=== PATIENT | female | born 1970 | race Hispanic/Latino ===

== ENCOUNTER 2016-06-28 09:33 | Inpatient (IN) | payer SELFPAY ==
--- NOTE | 2016-06-28 09:42 | Emergency Department Report ---
HPI - General Time Seen by Provider: 06/28/16 09:39 - HPI HPI: This is a 46-year-old female who presents to the emergency department from home via EMS with the complaint of possible stroke. The patient has left- sided weakness and numbness or decreased sensation. The patient was at the dentist office yesterday when she had some type of procedure done or medication given which she started having the same set of symptoms. She went from the dentist office to [facility] where she had an evaluation, was admitted as an observational stay and then discharged 24 hours later after her symptoms had resolved. The patient went to sleep last night back at her baseline. She woke up this morning with the left sided weakness and decreased sensation on the left side compared to the right. She is not taken anything and was not given anything for symptoms prior to presentation. She has a history of hypertension and has not yet taken her blood pressure medications this morning. No recent travel or sick contacts at home. She denies any tobacco or illicit drug use or abuse. ED Past Medical Hx - Medications Home Medications: Home Medications Medication Instructions Recorded Confirmed Last Taken Type Aspirin [Adult Low Dose Aspirin EC] 81 mg PO DAILY 06/28/16 06/28/16 06/27/16 History Clindamycin [Clindamycin CAP] 150 mg PO Q8HR 06/28/16 06/28/16 06/27/16 History Ramipril 5 mg PO DAILY 06/28/16 06/28/16 06/27/16 History Rosuvastatin (Nf) [Crestor] 20 mg PO QHS 06/28/16 06/28/16 06/27/16 History traMADol [Ultram] 50 mg PO Q6HR PRN 06/28/16 06/28/16 Unknown History ED Review of Systems ROS: Stated complaint: POSS CVA Other details as noted in HPI Comment: All other systems reviewed and negative Constitutional: denies: chills, fever Eyes: denies: eye pain, eye discharge, vision change ENT: denies: ear pain, throat pain Respiratory: denies: cough, shortness of breath, wheezing Cardiovascular: denies: chest pain, palpitations Gastrointestinal: denies: abdominal pain, nausea, diarrhea Genitourinary: denies: urgency, dysuria, discharge Musculoskeletal: denies: back pain, joint swelling, arthralgia Skin: denies: rash, lesions Neurological: weakness, numbness Physical Exam - Physical Exam Physical Exam: GENERAL: The patient is well-developed well-nourished. HEENT: Normocephalic. Atraumatic. Extraocular motions are intact. Patient has moist mucous membranes. Pupils equal reactive to light bilaterally. No nystagmus. No gaze preference. Tongue is midline. NECK: Supple. Trachea is midline. CHEST/LUNGS: Clear to auscultation. There is no respiratory distress noted. HEART/CARDIOVASCULAR: Regular. There is no tachycardia. There is no gallop rub or murmur. ABDOMEN: Abdomen is soft, nontender. Patient has normal bowel sounds. There is no abdominal distention. SKIN: There is no rash. There is no edema. There is no diaphoresis. NEURO: The patient is awake, alert, and oriented. The patient is cooperative. Patient has normal speech. There is no facial asymmetry. There is left upper extremity pronator drift and weakness. She is able to keep the arm raised above the gurney but it does drop from shoulder level. There is left lower extremity weakness. She is able to lift it above the gurney and keep it elevated but it also has a drift and cannot be raised as high as the right lower extremity. There is decreased sensation to the left side of the face, left arm and left leg when compared to the right side. MUSCULOSKELETAL: There is no tenderness or deformity. There is no limitation range of motion. There is no evidence of acute injury. Radial pulse +2 over 4 bilaterally. ED Course - Consultations Consultation #1: 06/28/16 10:09 I spoke with the telemedicine neurologist, Dr. Magana, who feels the patient warrants admission for further workup including MRI for stroke but does not feel that the patient is a candidate for TPA as she had symptoms yesterday, awoke with the symptoms this morning and he is not convinced that the patient's symptoms may have necessarily completely gone away in between the 2 and therefore she is outside any window for TPA as well. ED Medical Decision Making - Lab Data Result diagrams: 06/28/16 10:32 06/28/16 10:32 - EKG Data -: EKG Interpreted by Me EKG shows normal: sinus rhythm, axis, intervals, QRS complexes, ST-T waves Rate: normal - EKG Data When compared to previous EKG there are: previous EKG unavailable Interpretation: normal EKG - Radiology Data Radiology results: report reviewed No acute intracranial abnormality seen on CT of head without contrast. - Medical Decision Making 46-year-old female presents to the emergency department with the complaint of some left-sided weakness and deficits that started upon waking this morning. A stat CT of the head was done without contrast that did not show any bleed, shift , mass, ischemic changes or signs of acute intracranial process. I consult to the telemedicine neurologist who felt that the patient was not a TPA candidate due to waking up with the symptoms and the fact that she may have not had complete resolution from her recent visit to [facility] for the same set of symptoms. Otherwise the patient's labs are unremarkable and do not show any etiology for the patient's symptoms. She was given an aspirin. Vital signs stable throughout her ED course. She will be admitted to the hospital for further evaluation and treatment and has been accepted for admission by the hospitalist, Dr. Ramos. - Differential Diagnosis TIA, CVA, hypoglycemia, atypical seizure Critical Care Time: No Critical care attestation.: If time is entered above; I have spent that time in minutes in the direct care of this critically ill patient, excluding procedure time. ED Disposition Clinical Impression: Left-sided weakness, Numbness on left side CVA (cerebral vascular accident) Qualifiers: CVA mechanism: unspecified Qualified Code(s): I63.9 - Cerebral infarction, unspecified Disposition: OP ADMITTED IP TO THIS HOSP Is pt being admited?: Yes Does the pt Need Aspirin: Yes Condition: Stable Time of Disposition: 11:24
[2016-06-28 10:38] LABS: Urine Drugs of Abuse Note Disclamer
[2016-06-28 10:47] LABS: Basophils % (Auto) 0.8 % (0.0-1.8); Eosinophils % (Auto) 1.2 % (0.0-4.3); Hematocrit 35.7 % (30.3-42.9); Hemoglobin 11.7 gm/dl (10.1-14.3); Mean Corpuscular HGB Conc 33 % (30-34); Mean Corpuscular Hemoglobin 26 pg (28-32); Mean Corpuscular Volume 80 fl (79-97); Platelet Count 303 K/mm3 (140-440); Red Blood Count 4.45 M/mm3 (3.65-5.03); Red Cell Distribution Width 14.7 % (13.2-15.2); White Blood Count 6.4 K/mm3 (4.5-11.0)
--- NOTE | 2016-06-28 10:55 | Cat Scan Report ---
CT HEAD WITHOUT CONTRAST INDICATION: Suspected stroke. 98N. COMPARISON: None similar. FINDINGS: Noncontrast head CT demonstrates normal ventricles and sulci without acute or recent infarct, hemorrhage, mass effect or midline shift. No abnormal extra-axial fluid collections. Posterior fossa structures and basilar cisterns appear within normal limits. Symmetric eye globes. Small, 1-2 mm rightward nasal septal spur. Clear paranasal sinuses and mastoid air cells. Intact calvarium. Normal overlying scalp soft tissues. Extensive radiopaque dental material incidentally noted. CONCLUSION: No acute intracranial CT abnormality, as described. I phoned the above results to Dr. Gray in the ER, 9:55 AM, 06/28/2016. If focal neurologic deficits or strong clinical suspicion for an acute infarction exist, additional assessment as with MRI may be considered, as appropriate. Technical IT issues currently being experienced. Thank you for the opportunity to participate in this patient's care.
[2016-06-28 10:57] LABS: INR 1.19 (0.87-1.13)
[2016-06-28 10:57] LABS: Bacteria,Urine 1+ /HPF (Negative); Bilirubin,Urine NEG (Negative); Blood,Urine NEG (Negative); Ketones,Urine NEG (Negative); Leukocyte Esterase,Urine SM (Negative); Mucus,Urine FEW /HPF; Nitrite,Urine NEG (Negative); Urobilinogen,Urine < 2.0 mg/dL (<2.0)
[2016-06-28 10:58] LABS: Partial Thromboplastin Time 27.6 Sec. (24.2-36.6)
[2016-06-28 11:00] LABS: Alanine Aminotransferase 13 units/L (7-56); Albumin 3.8 g/dL (3.9-5); Albumin/Globulin Ratio 1.2 %; Alkaline Phosphatase 57 units/L (35-129); Anion Gap 16 mmol/L; BUN/Creatinine Ratio 26.66; Blood Urea Nitrogen 16 mg/dL (7-17); Calcium 8.7 mg/dL (8.4-10.2); Carbon Dioxide 25 mmol/L (22-30); Chloride 103.3 mmol/L (98-107); Creatine Kinase 43 units/L (30-135); Glucose 88 mg/dL (65-100); Potassium 3.8 mmol/L (3.6-5.0); Sodium 140 mmol/L (137-145)
[2016-06-28] MEDS ORDERED: BABY ASPIRIN PO ONE (11:24)
--- NOTE | 2016-06-28 11:29 | Admit Criteria Form ---
Admission Criteria Documentation: TELEMETRY CARE Telemetry Admission Guidelines (Place 'X' for any and all applicable criteria): Admission to telemetry [A] may be indicated for ANY ONE of the following(1)(2)(3 )(4)(5): [ ]I. Cardiac disease, including ANY ONE of the following (9)(10)(11)(12)(13 ): [ ]a) Postacute TN [ ]b) Low-risk patients with ST-segment elevation TN who have undergone successful percutaneous coronary intervention [ ]c) Unstable angina [ ]d) Suspected TN (until it is ruled out) [ ]e) Post cardiac surgery (first 48 to 72 hours unless complications occur) [ ]f) Acute arrhythmias (including significant tachycardia or bradycardia) [B] [ ]g) Firing of an implantable cardioverter defibrillator [C] [ ]h) Suspected pacemaker or implantable cardioverter defibrillator malfunction (10) [ ]i) New administration or adjustment of an antiarrhythmic drug [D ] [ ]j) Child admitted for acute congestive heart failure [ ]j) Long QT syndrome [ ]k) Advanced heart block (eg, second-degree Mobitz type II, third- degree heart block) [ ]l) Acute myocarditis or pericarditis [ ]m) Short-term (ambulatory or inpatient) monitoring after a cardiac procedure as indicated by ANY ONE of the following [E]: [ ]i) Electrophysiologic studies [ ]ii) Percutaneous coronary intervention with stent placement [ ]iii) Pacemaker placement with cardiac conduction defect [ ]iv) Implantable cardiac defibrillator placement [ ]II. Drug overdose or poisoning with substance that causes arrhythmias or QT prolongation (eg, phenothiazines, sympathomimetic agents, cyclic antidepressants, digitalis, antiarrhythmic drugs)(15) [ ]III. Short-term (ambulatory or inpatient) monitoring after therapeutic or diagnostic procedure requiring conscious sedation or anesthesia (eg, endoscopy, elective cardioversion) [X ]IV. Acute cerebrovascular even[F](18) [ ]V. Massive blood transfusion (eg, at least 10 units of packed red blood cells in 24 hours) [ ]. Variceal bleeding after endoscopy, sclerotherapy, or IV vasopressin [ ]VII. Uncorrected electrolyte abnormalities associated with an increased risk of dangerous arrhythmia [G]; examples include [ ]a) Hyperkalemia with attributable ECG changes [ ]b) Potassium greater than 6.5 mmol/L (mEq/L) in a patient without history of chronic renal disease [ ]c) Prolonged QT attributed to hypokalemia, hypomagnesemia, or hypocalcemia [ ]VIII.Unexplained syncope or other neurologic event suspected of being due to arrhythmia due to a finding that increases risk; examples include(19)(20)(21): [ ]a) High-risk ECG findings (eg, bifascicular block, bradycardia, abnormal QT interval, ventricular pre- excitation) [ ]b) History of previous syncope due to arrhythmia [ ]c) Abnormal ventricular function (eg, reduced ejection fraction ) [ ]d) Exertional or supine syncope [ ]e) Concerning syncope characteristics (eg, sudden loss of consciousness without prodrome) [ ]f) Family history of sudden [ ]g) Use of arrhythmogenic medication [ ]h) Suspected cardiac ischemia [ ]i) Known channelopathy (eg, long QT syndrome, Brugada syndrome, or catecholaminergic paroxysmal ventricular tachycardia) [ ]j) Known structural heart disease (eg, hypertrophic cardiomyopathy , severe valvular disease) [ ]k) Palpitations preceding syncope The original [employer] content created by [employer] has been revised. The portions of the content which have been revised are identified through the use of italic text or in bold, and [employer] has neither reviewed nor approved the modified material. All other unmodified content is copyright [employer]. Please see references footnoted in the original [employer] edition 2016 Admission Criteria Met: Yes
[2016-06-28] MEDS ORDERED: BABY ASPIRIN ONE (13:48)
[2016-06-28] MEDS ORDERED: HEPARIN ONE (13:48)
[2016-06-28] MEDS ORDERED: HEPARIN SUB-Q SCH (14:00)
--- NOTE | 2016-06-28 14:51 | History and Physical Report ---
History of Present Illness Date of examination: 06/28/16 Date of admission: 06/28/16 11:25 Chief complaint: Left sided weakness and numbness History of present illness: 46-year-old female patient presented to the ED via EMS from home with left- sided weakness and numbness. Patient stated she was discharged from [place] a day ago due to the same symptoms of left-sided weakness and numbness. [facility] observed her for 24 hours in her symptoms were resolved then discharge. Patient stated she went to bed last night and she was fine and woke up this morning with left-sided weakness and numbness. Patient denies taking any medication prior to her episode. Patient reported history of left breast CA diagnosed in 1989 with a mastectomy [no lymph node removal), HTN and asthma. Past History Past Medical History: cancer (Left Breast), hypertension, other (Asthma) Past Surgical History: mastectomy ((to left breast and no lymph node removal)) Social history: , lives with family, full code. denies: smoking, alcohol abuse Family history: diabetes, hypertension Medications and Allergies Allergies Allergy/AdvReac Type Severity Reaction Status Date / Time acetaminophen [From Tylenol] Allergy Unknown Verified 06/28/16 09:43 Penicillins Allergy Vomiting Verified 06/28/16 09:43 Home Medications Medication Instructions Recorded Confirmed Last Taken Type Aspirin [Adult Low Dose Aspirin EC] 81 mg PO DAILY 06/28/16 06/28/16 06/27/16 History Clindamycin [Clindamycin CAP] 150 mg PO Q8HR 06/28/16 06/28/16 06/27/16 History Ramipril 5 mg PO DAILY 06/28/16 06/28/16 06/27/16 History Rosuvastatin (Nf) [Crestor] 20 mg PO QHS 06/28/16 06/28/16 06/27/16 History traMADol [Ultram] 50 mg PO Q6HR PRN 06/28/16 06/28/16 Unknown History Active Meds: Active Medications Heparin Sodium (Porcine) (Heparin) 5,000 unit SUB-Q Q8HR [facility] Last Admin: 06/28/16 14:11 Dose: 5,000 unit Review of Systems Constitutional: no weight loss, no weight gain, no fever, no chills Cardiovascular: no chest pain, no palpitations Respiratory: no cough, no wheezing Genitourinary Female: abnormal vaginal bleeding Menstruation: period spotting (last 2 weeks ago) Rectal: no pain, no bleeding Integumentary: deferred Neurological: other (See HPI-Left sided mild weakness and numbness), no head injury Psychiatric: no anxiety Endocrine: no cold intolerance, no heat intolerance Hematologic/Lymphatic: no easy bruising, no easy bleeding Allergic/Immunologic: no wheezing Exam - Constitutional Vitals: Temp Pulse Resp BP Pulse Ox 98.5 F 87 13 116/61 98 06/28/16 09:35 06/28/16 14:00 06/28/16 14:00 06/28/16 14:00 06/28/16 14:00 General appearance: Present: no acute distress - EENT ENT: hearing intact - Neck Neck: Present: normal ROM - Respiratory Respiratory effort: normal Respiratory: negative: wheezing - Cardiovascular Rhythm: regular Heart Sounds: Present: S1 & S2. Absent: systolic murmur, diastolic murmur - Extremities Extremities: Full ROM - Abdominal General gastrointestinal: Present: soft, non-tender, hypoactive bowel sounds Female genitourinary: Present: deferred - Rectal Rectal Exam: deferred - Musculoskeletal Musculoskeletal: generalized weakness - Psychiatric Psychiatric: intact judgment & insight - Neurologic Neurologic: focal deficits (4+/5 power Left upper extremety and left lower extremety. Involving proximal and distal muscles), other (No facial palsy) - Allied Health Allied health notes reviewed: nursing Results - Labs CBC & Chem 7: 06/28/16 10:32 06/28/16 10:32 Labs: Laboratory Last Values WBC 6.4 K/mm3 (4.5-11.0) 06/28/16 10:32 RBC 4.45 M/mm3 (3.65-5.03) 06/28/16 10:32 Hgb 11.7 gm/dl (10.1-14.3) 06/28/16 10:32 Hct 35.7 % (30.3-42.9) 06/28/16 10:32 MCV 80 fl (79-97) 06/28/16 10:32 MCH 26 pg (28-32) L 06/28/16 10:32 MCHC 33 % (30-34) 06/28/16 10:32 RDW 14.7 % (13.2-15.2) 06/28/16 10:32 Plt Count 303 K/mm3 (140-440) 06/28/16 10:32 Lymph % (Auto) 29.7 % (13.4-35.0) 06/28/16 10:32 [place] % (Auto) 8.9 % (0.0-7.3) H 06/28/16 10:32 Eos % (Auto) 1.2 % (0.0-4.3) 06/28/16 10:32 Baso % (Auto) 0.8 % (0.0-1.8) 06/28/16 10:32 Lymph # 1.9 K/mm3 (1.2-5.4) 06/28/16 10:32 [place] # 0.6 K/mm3 (0.0-0.8) 06/28/16 10:32 Eos # 0.1 K/mm3 (0.0-0.4) 06/28/16 10:32 Baso # 0.1 K/mm3 (0.0-0.1) 06/28/16 10:32 Seg Neutrophils % 59.4 % (40.0-70.0) 06/28/16 10:32 Seg Neutrophils # 3.8 K/mm3 (1.8-7.7) 06/28/16 10:32 PT 15.0 Sec. (12.2-14.9) H 06/28/16 10:32 INR 1.19 (0.87-1.13) H 06/28/16 10:32 APTT 27.6 Sec. (24.2-36.6) 06/28/16 10:32 Thrombin Time 15.8 Sec. (15.1-19.6) 06/28/16 10:32 Sodium 140 mmol/L (137-145) 06/28/16 10:32 Potassium 3.8 mmol/L (3.6-5.0) 06/28/16 10:32 Chloride 103.3 mmol/L (98-107) 06/28/16 10:32 Carbon Dioxide 25 mmol/L (22-30) 06/28/16 10:32 Anion Gap 16 mmol/L 06/28/16 10:32 BUN 16 mg/dL (7-17) 06/28/16 10:32 Creatinine 0.6 mg/dL (0.7-1.2) L 06/28/16 10:32 Estimated GFR > 60 ml/min 06/28/16 10:32 BUN/Creatinine Ratio 26.66 % 06/28/16 10:32 Glucose 88 mg/dL (65-100) 06/28/16 10:32 POC Glucose 87 (70-105) 06/28/16 09:55 Calcium 8.7 mg/dL (8.4-10.2) 06/28/16 10:32 Total Bilirubin 0.40 mg/dL (0.1-1.2) 06/28/16 10:32 AST 11 units/L (5-40) 06/28/16 10:32 ALT 13 units/L (7-56) 06/28/16 10:32 Alkaline Phosphatase 57 units/L (35-129) 06/28/16 10:32 Total Creatine Kinase 43 units/L (30-135) 06/28/16 10:32 CK-MB (CK-2) 1.0 ng/mL (0.0-4.0) 06/28/16 10:32 CK-MB (CK-2) Rel Index 2.3 (0-4) 06/28/16 10:32 Troponin T < 0.010 ng/mL (0.00-0.029) 06/28/16 13:38 Total Protein 7.0 g/dL (6.3-8.2) 06/28/16 10:32 Albumin 3.8 g/dL (3.9-5) L 06/28/16 10:32 Albumin/Globulin Ratio 1.2 % 06/28/16 10:32 Urine Color Yellow (Yellow) 06/28/16 10:24 Urine Turbidity Clear (Clear) 06/28/16 10:24 Urine pH 6.0 (5.0-7.0) 06/28/16 10:24 Ur Specific [place] 1.019 (1.003-1.030) 06/28/16 10:24 Urine Protein 30 mg/dl mg/dL (Negative) 06/28/16 10:24 Urine Glucose (UA) Neg mg/dL (Negative) 06/28/16 10:24 Urine Ketones Neg mg/dL (Negative) 06/28/16 10:24 Urine Blood Neg (Negative) 06/28/16 10:24 Urine Nitrite Neg (Negative) 06/28/16 10:24 Urine Bilirubin Neg (Negative) 06/28/16 10:24 Urine Urobilinogen < 2.0 mg/dL (<2.0) 06/28/16 10:24 Ur Leukocyte Esterase Sm (Negative) 06/28/16 10:24 Urine WBC (Auto) 27.0 /HPF (0.0-6.0) H 06/28/16 10:24 Urine RBC (Auto) 5.0 /HPF (0.0-6.0) 06/28/16 10:24 U Epithel Cells (Auto) 8.0 /HPF (0-13.0) 06/28/16 10:24 Urine Bacteria (Auto) 1+ /HPF (Negative) 06/28/16 10:24 Urine Mucus Few /HPF 06/28/16 10:24 Urine Opiates Screen Presumptive negative 06/28/16 10:24 Urine Methadone Screen Presumptive negative 06/28/16 10:24 Ur Barbiturates Screen Presumptive negative 06/28/16 10:24 Ur Phencyclidine Scrn Presumptive negative 06/28/16 10:24 Ur Amphetamines Screen Presumptive negative 06/28/16 10:24 U Benzodiazepines Scrn Presumptive negative 06/28/16 10:24 Urine Cocaine Screen Presumptive negative 06/28/16 10:24 U Marijuana (THC) Screen Presumptive negative 06/28/16 10:24 Drugs of Abuse Note Disclamer 06/28/16 10:24 Short CBC 06/28/16 Range/Units 10:32 WBC 6.4 (4.5-11.0) K/mm3 Hgb 11.7 (10.1-14.3) gm/dl Hct 35.7 (30.3-42.9) % Plt Count 303 (140-440) K/mm3 BMP 06/28/16 10:32 Sodium 140 Potassium 3.8 Chloride 103.3 Carbon Dioxide 25 BUN 16 Creatinine 0.6 L Glucose 88 Calcium 8.7 Cardiac Enzymes 06/28/16 06/28/16 Range/Units 10:32 13:38 Total Creatine Kinase 43 (30-135) units/L CK-MB (CK-2) 1.0 (0.0-4.0) ng/mL Troponin T < 0.010 < 0.010 (0.00-0.029) ng/mL Liver Function 06/28/16 Range/Units 10:32 Total Bilirubin 0.40 (0.1-1.2) mg/dL AST 11 (5-40) units/L ALT 13 (7-56) units/L Alkaline Phosphatase 57 (35-129) units/L Albumin 3.8 L (3.9-5) g/dL Urine 06/28/16 Range/Units 10:24 Urine Color Yellow (Yellow) Urine pH 6.0 (5.0-7.0) Ur Specific [place] 1.019 (1.003-1.030) Urine Protein 30 mg/dl (Negative) mg/dL Urine Glucose (UA) Neg (Negative) mg/dL - Imaging and Cardiology EKG: report reviewed (NSR) CT Scan - head: report reviewed (No acute findings) Assessment and Plan Assessment and plan: 46-year-old female patient presented to the ED via EMS from home with left- sided weakness and numbness. Patient stated she was discharged from [place] a day ago due to the same symptoms of left-sided weakness and numbness. [facility] observed her for 24 hours in her symptoms were resolved then discharge. Patient stated she went to bed last night and she was fine and woke up this morning with left-sided weakness and numbness. Patient denies taking any medication prior to her episode. Pt's PMHX HTN, left breast CA diagnosed in 1989 with a mastectomy [no lymph node removal), asthma. The patient denies fever, chills and falls. Patient complain of headache, constipation 2 days, weakness when she walks. Patient stated she has continuous spotting post menstrual cycle 2 weeks ago. Advance Directives: No (Full code) VTE prophylaxis?: Chemical Plan of care discussed with patient/family: Yes - Patient Problems (1) CVA (cerebral vascular accident) Current Visit: Yes Status: Acute Qualifiers: CVA mechanism: unspecified Precerebral and cerebral artery: P Laterality of affected vessel: L Qualified Code(s): I63.9 - Cerebral infarction, unspecified Plan to address problem: Acute CVA vs TIA. I'm in in favor of TIA. Patient has complete workup at [place]. We'll try to get the records. Will order MRI. We'll not order MRA, echo, and carotid duplex scan. Will order if not done at [place]. Aspirin and Plavix ordered. Consult neurology, DR. Delvis. (2) HTN (hypertension) Current Visit: No Status: Chronic Qualifiers: Hypertension type: H Plan to address problem: Continue WT loss and diet (3) Asthma Current Visit: No Status: Chronic Qualifiers: Asthma severity: mild intermittent Asthma complication type: A Plan to address problem: continue PRN Neb treatment (4) Constipation Onset Date: ~06/28/16 Current Visit: Yes Status: Resolved Qualifiers: Constipation type: unspecified constipation type Qualified Code(s): K59.00 - Constipation, unspecified Plan to address problem: constipation resolved. Pt reported a BM today while in the ER. (5) Vaginal bleeding between periods Current Visit: Yes Status: Acute Plan to address problem: Pt appears to be a premenopausal and instructed to follow up with outpatient [employer]IC (6) DVT prophylaxis Onset Date: ~06/28/16 Current Visit: Yes Status: Acute Plan to address problem: Lovenox 40mg, sq, QD
[2016-06-28] MEDS ORDERED: ZOFRAN IV PRN (15:52)
[2016-06-28] MEDS ORDERED: MILK OF MAGNESIA PO PRN (15:52)
[2016-06-28] MEDS ORDERED: SODIUM CHLORIDE FLUSH SYRINGE 10 ML IV PRN (15:52)
[2016-06-28] MEDS ORDERED: TYLENOL PO PRN (15:52)
[2016-06-28] MEDS ORDERED: DULCOLAX PR PRN (15:52)
[2016-06-28 16:46] LABS: Creatine Kinase 47 units/L (30-135)
[2016-06-28 16:50] LABS: Creatine Kinase MB < 1.0 ng/mL (0.0-4.0)
[2016-06-28] MEDS ORDERED: NON-FORMULARY (Rosuvastatin (Nf) 20 MG) PO SCH (22:00)
[2016-06-28] MEDS ORDERED: ZOCOR PO SCH (22:00)
[2016-06-28] MEDS ORDERED: PEPCID PO SCH (22:00)
[2016-06-29 06:54] LABS: Alanine Aminotransferase 14 units/L (7-56); Albumin 3.5 g/dL (3.9-5); Albumin/Globulin Ratio 1.2 %; Alkaline Phosphatase 54 units/L (35-129); Anion Gap 19 mmol/L; Blood Urea Nitrogen 15 mg/dL (7-17); Calcium 8.4 mg/dL (8.4-10.2); Carbon Dioxide 24 mmol/L (22-30); Cholesterol 101 mg/dL (50-199); Glucose 95 mg/dL (65-100); HDL Cholesterol 40 mg/dL (40-59); LDL Cholesterol,Direct 46 mg/dL (50-130); Potassium 3.7 mmol/L (3.6-5.0); Sodium 142 mmol/L (137-145); Total Protein 6.4 g/dL (6.3-8.2); Triglycerides 77 mg/dL (2-149)
[2016-06-29 09:31] VITALS: BP 119/63
[2016-06-29] MEDS ORDERED: RAMIPRIL 5 MG PO SCH (10:00)
[2016-06-29] MEDS ORDERED: ZESTRIL PO SCH (10:00)
[2016-06-29] MEDS ORDERED: HALFPRIN EC PO SCH (10:00)
--- NOTE | 2016-06-29 10:36 | Discharge Summary ---
Providers - Providers Date of Admission: 06/28/16 11:25 Date of discharge: 06/29/16 Attending physician: NICKY BURNS 06/28/16 15:52 Consult to Physician [CONS] Routine Consulting Provider: LILIAN COELLO Reason For Exam: CVA /TIA Place consult to:: NEURO Notified:: Y Time called:: 16:30 Comment:: LEFT MESSAGE AT EXT [id number] 06/28/16 15:53 Occupational Therapy Evaluate and Treat [CONS] Routine Comment: Reason For Exam: Neuro deficits Physical Therapy Evaluation and Treat [CONS] Routine Comment: Reason For Exam: Neuro deficits Primary care physician: LAW ENFORCEMENT DIRECTOR Hospitalization Reason for admission: Left sided weakness and numbness Condition: Stable Hospital course: History below was obtained from the admission H&P record as follows: 46-year-old female patient presented to the ED via EMS from home with left- sided weakness and numbness. Patient stated she was discharged from [place] a day ago due to the same symptoms of left-sided weakness and numbness. [facility] observed her for 24 hours in her symptoms were resolved then discharge. Patient stated she went to bed last night and she was fine and woke up this morning with left-sided weakness and numbness. Patient denies taking any medication prior to her episode. Patient reported history of left breast CA diagnosed in 1989 with a mastectomy [no lymph node removal), HTN and asthma. Unfortunately, patient left AMA prior to my evaluation this morning. Disposition: LEFT AGAINST MEDICAL ADVICE Core Measure Documentation - Palliative Care Palliative Care/ Comfort Measures: Not Applicable - Core Measures Any of the following diagnoses?: stroke - Stroke Discharge Requirements Statin for LDL = or >70 mg/dl on DC: No Reason for no statin on DC: Patient Refusal Anticoag for atrial fib/atrial flutter: No Reason for no anticoag for AF/F on DC: Patient Refusal Antithrombotic for ischemic stroke: No Reason for no antithrombotic on DC: Patient Refusal Exam - Physical Exam Narrative exam: Patient left AMA prior to examination - Constitutional Vitals: Temp Pulse Resp BP Pulse Ox 98.2 F 78 18 119/63 98 06/29/16 07:48 06/29/16 09:00 06/29/16 07:48 06/29/16 07:48 06/29/16 07:48 Plan Follow up with: PRIMARY CAREMD [Primary Care Provider] - 3-5 Days
--- NOTE | 2016-06-29 10:49 | Event Note ---
Date: 06/29/16 I attempted to see this patient between my scheduled coverage time of 8 AM-12 PM but they were not present in the floor room. I will return to staff in consultation 06/30 but documents suggest pt left AMA.
[2016-06-29] MEDS ORDERED: LOVENOX SUB-Q SCH (22:00)
== END 2016-06-29 10:45 | disposition left against medical advice (07) | DRG 948 ==
LOC: ED 09:33 → 4A 11:25
PROVIDERS: ADMIT Internal Medicine; ATTEND Hospitalist
DX: R53.1 Weakness (principal); I10 Essential (primary) hypertension; J45.909 Unspecified asthma, uncomplicated; K59.00 Constipation, unspecified; N93.9 Abnormal uterine and vaginal bleeding, unspecified; Z90.12 Acquired absence of left breast and nipple; Z85.3 Personal history of malignant neoplasm of breast; Z88.6 Allergy status to analgesic agent; Z88.0 Allergy status to penicillin; Z82.49 Family history of ischemic heart disease and other diseases of the circulatory system; Z83.3 Family history of diabetes mellitus
CPT/HCPCS: 36415; 70450; 80053; 80061; 80307; 81001; 82550; 82553; 82962; 84484; 85025; 85610; 85670; 85730; 93005; 93010; 96372; A9270-GY; J1644; J2405